=== PATIENT | female | born 1975 | race Caucasian/White ===

== ENCOUNTER 2024-11-22 09:53 | Day surgery (SDC) | payer BC, SELFPAY ==
[2024-11-21 09:20] VITALS: BMI 28.1
--- NOTE | 2024-11-21 20:51 | EXP.HP ---
History of Present Illness *Admission Date: 11/22/24 *History of present illness: Mrs. Colin is a 49-year-old female who is here for diagnostic EGD. The patient had been recently seen in the ED at [facility] on the evening 11/15/2024 with the onset of sudden severe upper abdominal pain and chest pain. Cardiac evaluation was normal. Her CAT scan showed an esophageal abnormality and she does have a history of eosinophilic esophagitis diagnosed approximately 13 years ago. Her CAT scan had shown significant esophageal wall thickening concerning for esophagitis or mass. The examination is deemed medically necessary for diagnostic EGD. The patient has been seen, interviewed and examined prior to the procedure by both myself and the anesthesia provider. [facility] Disclaimer: The information contained in this section may have been updated after the patient was seen, as this information can be updated by other users. Medical History (Updated 11/22/24 @ 10:19 by Sheryl Morelos RN) Kidney stone History of COVID-19 Migraine OCD (obsessive compulsive disorder) Anti-phospholipid antibody syndrome Hypertension Surgical History (Updated 11/22/24 @ 10:19 by Sheryl Morelos RN) H/O dilation and curettage Hx laparoscopic cholecystectomy History of H/O esophagogastroduodenoscopy Family History (Updated 11/22/24 @ 10:19 by Sheryl Morelos RN) Other Diabetes Hypertension Social History (Updated 11/22/24 @ 10:21 by Sheryl Morelos RN) Smoking Status: Never smoker alcohol intake: never current occupational status: employed Travel in the last 8 weeks?: None caffeine: Yes Have you lived/traveled outside [place] in past 30 days?: No Contact w/someone who lives/traveled outside [place] past 30 days?: No Exposure to someone with infectious disease in past 14 days?: No Do you have a fever (greater than 100.4 F or 38 C)?: No Have you tested positive for COVID-19?: No Exposed to someone with COVID-19 in past 14 days?: No Do you have a sore throat?: No Do you have a cough?: No Do you have any weakness?: No Are you experiencing any nausea/vomitting?: No Do you have any diarrhea?: No Are you experiencing any unusual bleeding?: No Do you have any muscle aches/pain?: No Do you have any abdominal pain?: No Are you experiencing loss of taste or smell?: No Review of Systems Review of Systems Review of systems (narrative): Negative *Cardiovascular Comments: Negative *Gastrointestinal Comments: Negative *Genitourinary Comments: Negative *Musculoskeletal Comments: Negative *Neurologic Comments: Negative Meds Home Medications and Allergies Home Medications ?Medication ?Instructions ?Recorded ?Confirmed ?Type fremanezumab-vfrm 225 mg/1.5 mL 225 mg SQ MONTHLY 10/04/24 11/22/24 History subcutaneous syringe (Ajovy Syringe) losartan 50 mg tablet 50 mg PO DAILY 10/04/24 11/22/24 History fluoxetine 20 mg capsule 60 mg PO DAILY 11/22/24 11/22/24 History multivitamin 1 cap PO DAILY 11/22/24 11/22/24 History New Prescriptions to Start Prescriptions: Allergies Allergy/AdvReac Type Severity Reaction Status Date / Time Iodinated Contrast Media Allergy Unknown Nausea Verified 11/22/24 10:11 Penicillins Allergy Unknown Hives Verified 11/22/24 10:11 nifedipine Allergy Vomiting Verified 11/22/24 10:11 nitrofurantoin (From Allergy Hives Verified 11/22/24 10:11 Macrobid) sumatriptan (From Imitrex) Allergy Flushing Verified 11/22/24 10:11 Exam Data for Last 24 hours I & O for Last 24 hours: Intake & Output 11/18/24 11/19/24 11/20/24 11/21/24 23:59 23:59 23:59 23:59 Weight 180 lb *Routine HEENT Exam Head: Present normocephalic Eye: Present EOMI and PERRL ENT: Present mucous membranes moist *Routine Neck Exam Neck: Present supple *Routine Respiratory Exam Respiratory: Present CTA bilaterally *Routine Cardiovascular Exam Cardiovascular: Present RRR *Routine Abdominal Exam Abdominal: Present soft and normoactive bowel sounds; Absent tenderness *Routine Rectal Exam Rectal:: deferred *Routine Genitalia Exam Genitalia:: deferred *Routine Extremities Exam Extremities: Absent cyanosis, clubbing or edema *Routine Skin Exam Skin: Present warm; Absent rash *Routine Neurological Exam Neurological: Present alert and oriented X3 Assessment and Plan *Assessment and plan (1) Eosinophilic esophagitis: Status: Acute Category: Medical Code(s): K20.0 - Eosinophilic esophagitis (2) Abnormal CT scan, esophagus: Status: Acute Category: Medical Code(s): R93.3 - Abnormal findings on diagnostic imaging of other parts of digestive tract (3) Epigastric pain: Status: Acute Category: Medical Code(s): R10.13 - Epigastric pain (4) Non-cardiac chest pain: Status: Acute Category: Medical Code(s): R07.89 - Other chest pain Plan A/P: 1. Acute onset of epigastric and retrosternal (noncardiac) chest pain is the preprocedural diagnosis. The patient did have a mass or abnormality on her CAT scan of the esophagus and she does have a history of eosinophilic esophagitis. The patient will be anesthetized/sedated using MAC sedation. The patient has been seen and examined. Cardiac and lung assessment prior to the examination is stable. Proceed with planned diagnostic EGD.
--- NOTE | 2024-11-22 07:17 | HMH.PROCNOTE ---
[facility] Procedure Note Date: 11/22/24 Time: 11:05 Procedure Note:: Upper Endoscopy Procedure Report: Esophagogastroduodenoscopy with cold biopsies and TTS balloon dilation Endoscopost: Kenneth Ramirez II, MD Referring Physician: Rachid Araya MD Date of Procedure: November 22, 2024 Equipment: Olympus GIF-1100 standard upper endoscope Sedation: MAC sedation Indications: Mrs. Colin is a 49-year-old female who is here for diagnostic EGD. The patient had been recently seen in the ED at [facility] on the evening 11/15/2024 with the onset of sudden severe lower retrosternal chest pain. Cardiac evaluation was normal. The patient continues to have odynophagia and severe pain with swallowing. Since she went to the ED, she has not ingested much solids or liquids. Her CAT scan showed an esophageal abnormality and she does have a history of eosinophilic esophagitis diagnosed in 2011 at time of EGD (Juliann Gutierrez MD). At that time she utilized budesonide short-term and has some food allergy testing (Nelda Alvarez MD). She presently is not on any maintenance of remission treatment for her EOE. Her CAT scan in the ED recently had shown significant esophageal wall thickening concerning for esophagitis or mass. The examination is deemed medically necessary for diagnostic EGD. Procedure: Prior to the procedure, a history and physical exam was performed, and patient's medications and allergies were reviewed. The risks, benefits and alternatives of the sedation and procedure were discussed with the patient. All questions were answered and informed consent was obtained. The patient was brought to the procedure room. Patient identification and proposed procedure were verified by the physician and the nurse. The patient was placed in a left lateral decubitus position and the scope was passed under direct vision. Throughout the procedure, the patient's blood pressure, pulse, and oxygen saturations were monitored continuously. The upper GI endoscopy was accomplished without difficulty. The patient tolerated the procedure well. Findings: The scope was passed directly into the upper esophagus and advanced to the third portion of the duodenum. The post bulbar duodenum, ampulla and duodenal bulb were normal with normal mucosa and conniventes. A cold biopsy was taken from the second portion of the duodenum for the disaccharidase assay. The scope was withdrawn through a normal duodenal bulb and pylorus into the stomach. There was some bile reflux with linear reactive gastropathy of the antrum. The body and fundus of the stomach were normal. Upon retroflexion there was no hiatal hernia. Cold biopsies were taken from the antrum. The scope was then withdrawn into the esophagus. There was corrugation and furrowing consistent with active eosinophilic esophagitis with reduced esophageal luminal diameter. Approximately 3 to 4 cm from the gastroesophageal junction was a linear ulceration that extended 2.5 cm in length and was approximately 6 to 7 mm in width with clean margins. This was along the posterior wall of the esophagus. This esophageal ulcer appeared to be possibly a pill induced ulcer of the esophagus. Cold biopsies were taken from the distal and proximal esophagus to check the activity of eosinophilic esophagitis (check eosinophils per high-power field). Additionally, biopsies were obtained from the margin of the linear ulcer. Because of this ulcer, esophageal dilation was not performed. The remainder of the esophageal mucosa was normal. Impression: 1. Esophageal ulcer (2.5 cm length and 6 to 7 mm with) with benign appearance and possibly pill induced esophageal ulcer 2. Esophageal corrugation and furrowing consistent with active eosinophilic esophagitis 3. Bile reflux with mild linear reactive gastropathy Plan: I will follow-up the biopsies. I will inquire about medications that cause pill induced esophagitis (i.e. doxycycline/tetracycline, NSAIDs or alendronate). Additionally, her eosinophilic esophagitis is active. The incidence and prevalence of eosinophilic esophagitis (EOE) has increased dramatically over time. Extensive reviews have shown delays of several years and until recently, we did not have approved maintenance therapy (i.e. Dupixent). This is a progressive disease that persists and very few patients achieved resolution without proper treatment. Over the years, scar tissue can develop with fibrostenotic features (rings and strictures) and are more prominent with disease over 10 years can have a greater scar tissue component over the course of time when not treating the inflammatory component. This can have more long lasting ramifications and certainly may place persons a greater risk for aspiration as they get older. Delay in diagnosis, recognition and treatment are factors that may lend to chronic fibrostenosis of the esophagus. Dupixent now is the only FDA approved treatment and its impact will certainly be crucial in determining the natural history of this condition. I will repeat food allergy testing today and we will discuss treatment options. I would also recommend that we utilize viscous lidocaine because of her severe odynophagia until the ulcer heals.
[2024-11-22 10:08] VITALS: BP 161/103; PULSE 69; RESP 16; TEMP 36.8; O2SAT 98
[2024-11-22 10:18] LABS: Urine Pregnancy, HCG Qual. Negative (Negative)
[2024-11-22] MEDS: LACTATED RINGERS 1000ML 1,000 ML 50 ML IV (10:27)
--- NOTE | 2024-11-22 10:59 | EXP.ANES.CKL ---
[facility] Disclaimer: The information contained in this section may have been updated after the patient was seen, as this information can be updated by other users. Medical History (Updated 11/22/24 @ 10:19 by Sheryl Morelos RN) Kidney stone History of COVID-19 Migraine OCD (obsessive compulsive disorder) Anti-phospholipid antibody syndrome Hypertension Surgical History (Updated 11/22/24 @ 10:19 by Sheryl Morelos RN) H/O dilation and curettage Hx laparoscopic cholecystectomy History of H/O esophagogastroduodenoscopy Family History (Updated 11/22/24 @ 10:19 by Sheryl Morelos RN) Other Diabetes Hypertension Social History (Updated 11/22/24 @ 10:21 by Sheryl Morelos RN) Smoking Status: Never smoker alcohol intake: never substance use type: denies use current occupational status: employed Travel in the last 8 weeks?: None caffeine: Yes [facility] Anesthesia Checklist Patient Identification Patient Identification: Arm Band and Verbal (Name & ) Structural Data Admitted From: Home Planned Operative Procedure/s: EGD Consent for Planned Operative Procedure(s) Verified: Yes Verified Documents: Surgical Consent NPO Status Verified Time NPO: 00:00 Chart Verification Results Verified: None Additional verifications Anesthesia Reactions: No Airway Assessment Mallampati Score:: Class II C-Spine Mobility Assessed: Yes TMJ Mobility Assessed: Yes Dentition: Good Dentition Neurological Assessment Level of Consciousness: Awake, Alert and Appropriate Hx Seizures: No Numbness or tingling in extremities: No Anesthesia Plan Anesthesia Risk discussed: Yes Anesthesia Plan: Verified ASA Class: II Anesthesia Type: MAC
[2024-11-22 11:02] VITALS: BP 133/85; PULSE 77; RESP 18; TEMP 36.4; O2SAT 97
[2024-11-22 11:12] VITALS: BP 117/72; PULSE 73; RESP 18; O2SAT 99
[2024-11-22 11:22] VITALS: BP 118/69; PULSE 100; RESP 18; O2SAT 96
[2024-11-22 12:15] VITALS: BP 134/94; PULSE 86; RESP 18; O2SAT 94
== END 2024-11-22 12:15 | disposition home or self-care (01) ==
PROVIDERS: PCP Family Medicine; Visit Provider Internal Medicine Gastroenterology
PROC: 0DJ08ZZ Inspection of Upper Intestinal Tract, Via Natural or Artificial Opening Endoscopic (ICD-10-PCS; CPT 43239; principal; 2024-11-22 14:30)
DX: K22.10 Ulcer of esophagus without bleeding (principal); K21.9 Gastro-esophageal reflux disease without esophagitis; K31.89 Other diseases of stomach and duodenum; I10 Essential (primary) hypertension; Z88.0 Allergy status to penicillin; Z88.8 Allergy status to other drugs, medicaments and biological substances
CPT/HCPCS: 43239; 36415; 81025; 82657; 86003; J2003; J2704; J7120